=== PATIENT | male | born 1950 | race Caucasian/White ===

== ENCOUNTER 2017-02-13 13:50 | Emergency (ER) | payer OTHER ==
[2017-02-13 14:14] VITALS: BP 122/61
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
== END 2017-02-13 14:20 | disposition short-term general hospital (02) ==
LOC: UCEAST 13:50
DX: M25.512 Pain in left shoulder (principal); R07.81 Pleurodynia; S40.812A Abrasion of left upper arm, initial encounter; S80.812A Abrasion, left lower leg, initial encounter; S09.90XA Unspecified injury of head, initial encounter; V18.0XXA Pedal cycle driver injured in noncollision transport accident in nontraffic accident, initial encounter; Y93.55 Activity, bike riding; Y92.9 Unspecified place or not applicable; M25.562 Pain in left knee; Z88.5 Allergy status to narcotic agent; Z91.040 Latex allergy status
CPT/HCPCS: 99214; G0463

== ENCOUNTER 2017-02-13 14:47 | Emergency (ER) | payer OTHER ==
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
[2017-02-13 15:59] LABS: Hematocrit 45 % (42-52); Hemoglobin 14.8 g/dl (14.0-18.0); Mean Corpuscular HGB Conc 33 g/dl (31-36); Mean Corpuscular Hemoglobin 31 pg (27-31); Mean Corpuscular Volume 94 fL (80-94); Mean Platelet Volume 9 um3 (7.4-10.4); Red Blood Count 4.81 10^6/ul (4.0-5.4); Red Cell Distribution Width 14 % (10.5-15); White Blood Count 12.4 10^3/ul (3.5-10.8)
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
[2017-02-13] MEDS ORDERED: Iodixanol* (CONTRAST) 320 MG/ML 100 ML SDV IV ONE (16:13)
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
[2017-02-13 16:18] LABS: Albumin 4.5 g/dL (3.2-5.2); Calcium 9.4 mg/dL (8.6-10.3); EGFR African American 81.5 (>60); EGFR Non-African American 63.4 (>60); Globulin 2.7 g/dL (2-4); Total Bilirubin 0.9 mg/dL (0.2-1.0); Total Protein 7.2 g/dL (6.4-8.9)
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
[2017-02-13 17:56] VITALS: BP 153/78
== END 2017-02-13 18:00 | disposition short-term general hospital (02) ==
LOC: ED 14:47
DX: S27.329A Contusion of lung, unspecified, initial encounter (principal); S22.32XA Fracture of one rib, left side, initial encounter for closed fracture; S42.002A Fracture of unspecified part of left clavicle, initial encounter for closed fracture; S42.102A Fracture of unspecified part of scapula, left shoulder, initial encounter for closed fracture; R06.02 Shortness of breath; R07.9 Chest pain, unspecified; M25.512 Pain in left shoulder; Y93.55 Activity, bike riding; Y92.9 Unspecified place or not applicable; Y99.9 Unspecified external cause status
CPT/HCPCS: 36415; 70450; 71250; 72125; 74177; 80053; 85025; 85610; 99284; Q9967